=== PATIENT | male | born 1970 | race Caucasian/White ===

== ENCOUNTER 2016-07-05 22:45 | Emergency (ER) | payer BC ==
--- NOTE | 2016-07-05 23:39 | ED.PDOC ---
History of Present Illness - General Chief Complaint: Blood Pressure Problem Stated Complaint: HTN, rt side weakness Time Seen by Provider: 07/05/16 23:30 Source: patient, RN notes reviewed, Vital Signs reviewed Exam Limitations: no limitations - History of Present Illness Initial Comments: Patient reports that early today his noticed that he had a right facial droop. Thus he started checking his blood pressure and it has been as high at 220/129 at home. He takes Lisinopril regularly. + numbness R face otherwise no other neurological complaints. Timing/Duration: 24 hours Severity: moderate Improving Factors: nothing Worsening Factors: nothing Associated Symptoms: denies symptoms Allergies/Adverse Reactions: Allergies NO KNOWN ALLERGY Allergy (Unverified 05/29/12 17:07) Home Medications: Ambulatory Orders Lisinopril 20 mg PO 07/05/16 Simvastatin 07/05/16 Methylprednisolone [Medrol Dose Delfino] 4 mg PO DAILY #1 pack 07/06/16 Valacyclovir HCl [Valtrex] 1 gm PO BID #14 tab 07/06/16 Review of Systems - Review of Systems Constitutional: States: no symptoms reported. Denies: chills, fever, malaise EENTM: States: no symptoms reported Respiratory: States: no symptoms reported. Denies: short of breath Cardiology: States: no symptoms reported. Denies: chest pain Gastrointestinal/Abdominal: States: no symptoms reported. Denies: nausea, vomiting Musculoskeletal: States: no symptoms reported Skin: States: no symptoms reported Neurological: States: see HPI, numbness - rigght face, weakness - right face Endocrine: States: no symptoms reported Hematologic/Lymphatic: States: no symptoms reported Family Medical History - Family History Father Family History: Unknown Physical Exam - Physical Exam General Appearance: Alert, Comfortable, No apparent distress, Well Developed, Well Groomed, Well Hydrated, Well Nourished Eye Exam: bilateral normal Neck: non-tender, full range of motion, supple, normal inspection Respiratory: chest non-tender, lungs clear, normal breath sounds, no respiratory distress, no accessory muscle use Cardiovascular/Chest: regular rate, rhythm, no gallop, no JVD, no murmur Extremity: normal range of motion, non-tender, normal inspection Neurologic: alert, normal mood/affect, oriented x 3, facial droop - on Right, other - Strength 5/5 throughout, normal gait. Skin Exam: normal color, warm/dry Progress - Results/Orders Results/Orders: Laboratory Tests 07/05/16 00:21 WBC 10.2 RBC 5.23 Hgb 15.1 Hct 44.0 MCV 84.0 MCH 28.9 MCHC 34.4 RDW 13.4 Plt Count 266 MPV 8.3 Absolute Neuts (auto) 5.50 Absolute Lymphs (auto) 3.30 Absolute Monos (auto) 1.00 H Absolute Eos (auto) 0.30 Absolute Basos (auto) 0.10 Neutrophils % 54.3 Lymphocytes % 32.1 Monocytes % 10.0 H Eosinophils % 3.0 Basophils % 0.6 Sodium 137 Potassium 3.8 Chloride 104 Carbon Dioxide 25 Anion Gap 11.8 L BUN 15 Creatinine 0.82 BUN/Creatinine Ratio 18.3 Random Glucose 210 H Serum Osmolality 280.8 Calcium 8.9 Total Bilirubin 0.4 AST 24 ALT 24 Alkaline Phosphatase 50 Serum Total Protein 7.9 Albumin 4.0 Globulin 3.9 H Albumin/Globulin Ratio 1.0 L Vital Signs - 24 hr 07/05/16 07/05/16 07/06/16 23:35 23:53 00:47 Temperature 98.0 F Pulse Rate [ 86 88 81 Right] Respiratory 18 16 Rate Blood Pressure 177/106 179/89 146/84 [Right Arm] O2 Sat by Pulse 97 Oximetry - EKG/XRAY/CT EKG: Sinus, no ST T wave changes Comments: Rate 84, normal EKG CT Ordered: Yes - Normal Head CT per Radiology Departure - Departure Clinical Impression: Fitzgerald's palsy, Hypertension, Hyperglycemia Time of Disposition: 01:01 Disposition: Discharge to Home or Self Care Condition: Good Departure Forms: ED Discharge - Pt. Copy, Patient Portal Self Enrollment Instructions: DI for High Blood Pressure, Fitzgerald's Palsy Diet: diabetic diet Activity: increase activity as tolerated Referrals: Gustavo Weir MD [Primary Care Provider] - 1-5 Days Prescriptions: Methylprednisolone [Medrol Dose Delfino] 4 mg PO DAILY #1 pack Valacyclovir HCl [Valtrex] 1 gm PO BID #14 tab Home Medications: Ambulatory Orders Lisinopril 20 mg PO 07/05/16 Simvastatin 07/05/16 Methylprednisolone [Medrol Dose Delfino] 4 mg PO DAILY #1 pack 07/06/16 Valacyclovir HCl [Valtrex] 1 gm PO BID #14 tab 07/06/16
[2016-07-05 23:40] VITALS: TEMP 98
[2016-07-05] MEDS ORDERED: LISINOPRIL 10 MG TAB PO ONE (23:41)
--- NOTE | 2016-07-06 00:14 | CT ---
EXAM DESCRIPTION: Head CLINICAL HISTORY: Right facial droop COMPARISON: None Available. TECHNIQUE: Contiguous axial images of the brain were obtained without the administration of intravenous contrast. FINDINGS: There is no acute intracranial hemorrhage or mass effect. Ventricular system is within normal limits. There is adequate tello-white matter differentiation. There is no skull fracture. There is mucoperiosteal thickening of the left maxillary sinus compatible with chronic sinusitis changes.. IMPRESSION: No acute intracranial abnormalities. Electronically signed by: Claus Gilbert MD 07/06/2016 12:13 AM [employer]MENT [employer]
[2016-07-06 01:23] VITALS: BP 148/82; O2SAT 98
== END 2016-07-06 01:23 | disposition home or self-care (01) ==
LOC: ER 22:45
DX: G51.0 Bell's palsy (principal); I10 Essential (primary) hypertension; R73.9 Hyperglycemia, unspecified; Z79.899 Other long term (current) drug therapy